=== PATIENT | male | born 1965 | race Caucasian/White ===

== ENCOUNTER 2020-07-23 08:51 | Emergency (ER) | payer OTHER ==
[2020-07-23 09:21] LABS: BASOPHIL 0.6 % (0-2); EOSINOPHIL 0.6 % (0-5); HCT 51.8 % (42.0-52.0); HGB 17.6 g/dl (13.2-18.0); LYMPHOCYTE 20.3 % (15-48); MCH 33.1 pg (25.0-31.0); MCV 97.4 fL (78.0-100.0); MPV 10.2 fL (6.0-9.5); NRBC 0; PLT 325 K/uL (150-400); RBC 5.32 M/uL (4.70-6.00); RDW 12.2 % (11.5-14.0); RETICULOCYTE COUNT 1.2 % (1.0-2.0); WBC 14.7 K/uL (4.0-10.5)
[2020-07-23 09:42] LABS: INR 1.07 (0.9-1.2); PROTHROMBIN TIME 13.2 SECONDS (11.4-13.6); PTT 31.2 SECONDS (22.2-34.7)
[2020-07-23 09:48] LABS: BILIRUBIN NEGATIVE (NEGATIVE); BLOOD NEGATIVE Ery/uL (NEGATIVE); CLARITY CLEAR (CLEAR); COLOR YELLOW (YELLOW); GLUCOSE (U) NORMAL (NORMAL); LEUKOCYTES NEGATIVE Leu/uL (NEGATIVE); NITRITE NEGATIVE (NEGATIVE); PROTEIN NEGATIVE (NEGATIVE); SPECIFIC GRAVITY >=1.030 (1.001-1.030); UROBILINOGEN 0.2 mg/dL (0.2-1.0)
[2020-07-23 10:25] LABS: ALBUMIN 4.2 g/dL (3.4-5.0); ALKALINE PHOSHATASE 115 U/L (46-116); ALT 39 U/L (16-63); AST 16 U/L (15-37); BILIRUBIN - TOTAL 0.6 mg/dL (0.2-1.0); BUN 14 mg/dL (7-18); BUN/CREAT RATIO (CALC) 12.7 RATIO; CHLORIDE 98 mmol/L (98-107); CO2 (BICARBONATE) 26 mmol/L (21-32); CPK 36 U/L (39-308); GLOBULIN (CALCULATION) 4.3 g/dL; GLUCOSE 120 mg/dL (74-106); LDH 170 U/L (85-227); LIPASE 68 U/L (73-393); MAGNESIUM 1.8 mg/dL (1.8-2.4); POTASSIUM 3.8 mmol/L (3.5-5.1); TOTAL PROTEIN 8.5 g/dL (6.4-8.2)
[2020-07-23 10:33] LABS: IRON % SATURATION 26.8 %SAT (20-50)
[2020-07-23 11:25] LABS: LACTIC ACID 2.6 mmol/L (0.4-1.9)
[2020-07-23 21:34] LABS: HCT 42.7 % (42.0-52.0); HGB 14.2 g/dL (13.2-18.0)
[2020-07-24 03:01] LABS: HCT 41.2 % (42.0-52.0); HGB 13.8 g/dL (13.2-18.0)
[2020-07-24 08:30] LABS: HCT 39.8 % (42.0-52.0); HGB 13.1 g/dL (13.2-18.0)
[2020-07-24 11:31] LABS: HCT 41.4 % (42.0-52.0); HGB 13.7 g/dL (13.2-18.0)
[2020-07-24] MEDS ORDERED: CARAFATE1 GM PO ×2 (12:00→12:08)
[2020-07-24] MEDS ORDERED: NORCO 5-325 TA1 EACH PO (12:00)
[2020-07-24] MEDS ORDERED: PROTONIX 40MG T40 MG PO ×2 (12:00→12:08)
[2020-07-24] MEDS ORDERED: ZOFRAN4 M1 PO ×2 (12:00→12:08)
[2020-07-24] MEDS ORDERED: PERCOCET 5-3251 EACH PO (12:08)
== END 2020-07-24 12:37 | disposition home or self-care (01) ==
LOC: FER 08:51
PROVIDERS: Emergency Medicine; Emergency Medicine Emergency Medical Services
DX: K20.91 Esophagitis, unspecified with bleeding (principal); R07.89 Other chest pain; R06.02 Shortness of breath; I10 Essential (primary) hypertension; F17.210 Nicotine dependence, cigarettes, uncomplicated; Z20.822 Contact with and (suspected) exposure to COVID-19
CPT/HCPCS: 36415; 36600; 71045; 71260; 80053; 81003; 82550; 82803; 83540; 83550; 83605; 83615; 83690; 83735; 84145; 84484; 85014; 85018; 85025; 85610; 85730; 86850; 86900; 86901; 93005; C9113; G0480; J1170; J2270; J2405; J7030; Q9967; U0002

== ENCOUNTER 2020-09-16 12:02 | Emergency (ER) | payer OTHER ==
[~2020-09-16 12:02] MED LIST: CARAFATE1 GM PO; NORCO 5-325 TA1 EACH PO; PERCOCET 5-3251 EACH PO; PROTONIX 40MG T40 MG PO; ZOFRAN4 M1 PO
[2020-09-16 13:38] LABS: EOSINOPHIL 1.6 % (0-5); HCT 44.8 % (42.0-52.0); LYMPHOCYTE 27.3 % (15-48); MCH 33.9 pg (25.0-31.0); MCHC 33.5 g/dL (32.0-36.0); MCV 101.4 fL (78.0-100.0); MONOCYTE 8.6 % (0-12); MPV 10.1 fL (6.0-9.5); NEUTROPHIL 60.3 % (41-80); NRBC 0; PLT 322 K/uL (150-400); RBC 4.42 M/uL (4.70-6.00); RDW 12.7 % (11.5-14.0); WBC 10.3 K/uL (4.0-10.5)
[2020-09-16 13:50] LABS: BUN/CREAT RATIO (CALC) 9.6 RATIO; CREATININE 0.83 mg/dL (0.67-1.17); POTASSIUM 3.8 mmol/L (3.5-5.1)
== END 2020-09-16 15:00 | disposition home or self-care (01) ==
LOC: FER 12:02
PROVIDERS: Emergency Medicine
DX: R60.0 Localized edema (principal); I10 Essential (primary) hypertension
CPT/HCPCS: 36415; 71045; 80048; 83880; 85025